=== PATIENT | female | born 1980 ===

== ENCOUNTER 2019-10-01 20:38 | Inpatient (IN) ==
[2019-10-01 21:14] LABS: Bilirubin,Urine Negative (Negative); Blood,Urine Negative (Negative); Clarity,Urine Cloudy (Clear); Color,Urine Yellow (Yellow); Glucose,Urine (UA) Normal (Normal); Ketones,Urine Negative (Negative); Leukocyte Esterase,Urine Moderate (Negative); Nitrite,Urine Negative (Negative); Protein,Urine Negative (Neg-Trace); Specific Gravity,Urine 1.021 (1.010-1.025); Urobilinogen,Urine Normal (Normal)
[2019-10-01 21:15] LABS: Bacteria,Urine Few per hpf (None-Few); Hyaline Casts,Urine Few per lpf (None-Few); Squamous Epithelial Cell,Urine Many per lpf (None-Few); WBC,Urine 15-30 per hpf (0-3)
[2019-10-01] MEDS ORDERED: Isovue-370 500 ML BOTTLE IVP ONE (21:19)
[2019-10-01] MEDS ORDERED: Morphine Sulfate 2 MG/ML SYRINGE IVP ONE (21:21)
[2019-10-01 21:27] LABS: RBC,Urine 0-3 per hpf (0-3)
[2019-10-01 21:31] LABS: Basophils % 0.6 %; Eosinophils # 0.1 K/mcL (0.0-0.6); Hematocrit 43.4 % (35.3-44.9); Hemoglobin 14.1 g/dL (11.5-15.4); Immature Granulocytes % 0.3 % (0-4); Lymphocytes # 1.2 K/mcL (0.6-4.6); Lymphocytes % 19.6 %; Mean Corpuscular HGB Conc 32.5 g/dL (31.6-35.5); Mean Corpuscular Hemoglobin 30.9 pg (28.0-33.3); Monocytes # 0.3 K/mcL (0.0-1.3); Monocytes % 5.1 %; Neutrophils # 4.6 K/mcL (1.6-8.9); Platelet Count 277 K/mcL (140-400); Red Blood Count 4.57 M/mcL (3.82-4.97); Red Cell Distribution Width 11.7 % (11.5-14.5); Segmented Neutrophils % 73.4 %; White Blood Count 6.3 K/mcL (4.3-11.1)
[2019-10-01 21:46] LABS: Alanine Aminotransferase 9 Units/L (7-52); Albumin 4.7 g/dL (3.5-5.7); Albumin/Globulin Ratio 1.3 (1.1-2.2); Alkaline Phosphatase 68 Units/L (34-104); Amylase 41 Units/L (29-103); Aspartate Amino Transferase 11 Units/L (13-39); BUN/Creatinine Ratio 13 (6-26); Bilirubin,Direct 0.1 mg/dL (0.0-0.2); Bilirubin,Indirect 0.3 mg/dL (0.0-1.0); Bilirubin,Total 0.4 mg/dL (0.3-1.0); Blood Urea Nitrogen 15 mg/dL (6-20); Calcium 9.9 mg/dL (8.6-10.3); Carbon Dioxide 23 mEq/L (23-29); Chloride 105 mEq/L (98-107); Globulin 3.5 g/dL (2.4-3.5); Glucose 103 mg/dL (70-105); Lipase 32 Units/L (11-82); Osmolality,Calculated 285 (280-300); Potassium 3.5 mEq/L (3.5-5.1); Sodium 137 mEq/L (136-145); Total Protein 8.2 g/dL (6.4-8.9); eGFR For African Americans > 60 (> 60); eGFR For Non-African Americans 50 (> 60)
[2019-10-01] MEDS ORDERED: cefTRIAXone 1,000 MG in Water for inj. (sterile) 10 ML IVP ONE (22:45)
[2019-10-01] MEDS ORDERED: Ketorolac 15 MG/ML VIAL IVP PRN (23:44)
[2019-10-01] MEDS ORDERED: Ondansetron 4 MG/2 ML VIAL IVP PRN (23:44)
[2019-10-01] MEDS ORDERED: Naloxone 0.4 MG/ML INJ IVP PRN (23:44)
[2019-10-02] MEDS: 0.9 % Sodium Chloride 1,000 ML IVC SCH (00:49)
[2019-10-02 05:01] LABS: BUN/Creatinine Ratio 13 (6-26); Blood Urea Nitrogen 14 mg/dL (6-20); Calcium 8.9 mg/dL (8.6-10.3); Carbon Dioxide 24 mEq/L (23-29); Chloride 108 mEq/L (98-107); Glucose 96 mg/dL (70-105); Osmolality,Calculated 288 (280-300); Potassium 3.6 mEq/L (3.5-5.1); Sodium 139 mEq/L (136-145); eGFR For African Americans > 60 (> 60); eGFR For Non-African Americans 57 (> 60)
[2019-10-02 05:15] LABS: Thyroid Stimulating Hormone 1.833 mcIU/mL (0.340-5.600)
[2019-10-02] MEDS: *HR* Heparin 5,000 UNIT/ML VIAL SQ SCH ×2 (05:22→16:15)
[2019-10-02] MEDS ORDERED: CLOBAZAM 10 MG PO SCH (10:00)
[2019-10-02] MEDS: Clobazam [Onfi] 10 MG PO SCH (20:44)
[2019-10-03] MEDS: *HR* Heparin 5,000 UNIT/ML VIAL SQ SCH ×2 (05:28→17:04)
[2019-10-03] MEDS: 0.9 % Sodium Chloride 1,000 ML IVC SCH (18:43)
[2019-10-03] MEDS ORDERED: Ondansetron ODT 4 MG TAB.RAPDIS SL ONE (20:20)
[2019-10-03] MEDS: Clobazam [Onfi] 10 MG PO SCH ×2 (21:07→21:29)
[2019-10-03] MEDS: Topiramate 25 MG TABLET PO SCH ×2 (21:08→22:10)
[2019-10-03] MEDS: risperiDONE 1 MG TABLET PO SCH ×2 (21:08→22:10)
[2019-10-03] MEDS: lamoTRIgine 100 MG TABLET PO SCH ×2 (21:08→22:10)
[2019-10-04 02:11] LABS: Hematocrit 39.6 % (35.3-44.9); Hemoglobin 13.2 g/dL (11.5-15.4); Mean Corpuscular HGB Conc 33.3 g/dL (31.6-35.5); Mean Platelet Volume 10.3 fL (9.4-12.4); Platelet Count 242 K/mcL (140-400); Red Blood Count 4.26 M/mcL (3.82-4.97); Red Cell Distribution Width 11.3 % (11.5-14.5); White Blood Count 6.7 K/mcL (4.3-11.1)
[2019-10-04 02:32] LABS: BUN/Creatinine Ratio 12 (6-26); Blood Urea Nitrogen 9 mg/dL (6-20); Calcium 9.5 mg/dL (8.6-10.3); Carbon Dioxide 22 mEq/L (23-29); Chloride 106 mEq/L (98-107); Glucose 107 mg/dL (70-105); Osmolality,Calculated 281 (280-300); Potassium 3.6 mEq/L (3.5-5.1); Sodium 136 mEq/L (136-145); eGFR For African Americans > 60 (> 60); eGFR For Non-African Americans > 60 (> 60)
[2019-10-04] MEDS: *HR* Heparin 5,000 UNIT/ML VIAL SQ SCH ×2 (05:33→17:16)
[2019-10-04] MEDS: risperiDONE 1 MG TABLET PO SCH ×2 (09:06→19:57)
[2019-10-04] MEDS: lamoTRIgine 100 MG TABLET PO SCH ×2 (09:06→19:56)
[2019-10-04] MEDS: Topiramate 25 MG TABLET PO SCH ×2 (09:07→19:56)
[2019-10-04] MEDS: Clobazam [Onfi] 10 MG PO SCH (19:56)
[2019-10-04] MEDS ORDERED: Ondansetron ODT 4 MG TAB.RAPDIS SL ONE (21:00)
[2019-10-05 02:05] LABS: Hematocrit 38.8 % (35.3-44.9); Hemoglobin 13.1 g/dL (11.5-15.4); Mean Corpuscular HGB Conc 33.8 g/dL (31.6-35.5); Mean Corpuscular Hemoglobin 31.6 pg (28.0-33.3); Mean Corpuscular Volume 93.7 fL (83.0-100.0); Mean Platelet Volume 10.2 fL (9.4-12.4); Platelet Count 243 K/mcL (140-400); Red Blood Count 4.14 M/mcL (3.82-4.97); Red Cell Distribution Width 11.5 % (11.5-14.5)
[2019-10-05 02:23] LABS: BUN/Creatinine Ratio 6 (6-26); Blood Urea Nitrogen 6 mg/dL (6-20); Calcium 9.5 mg/dL (8.6-10.3); Carbon Dioxide 22 mEq/L (23-29); Chloride 105 mEq/L (98-107); Glucose 99 mg/dL (70-105); Osmolality,Calculated 282 (280-300); Potassium 3.5 mEq/L (3.5-5.1); Sodium 137 mEq/L (136-145); eGFR For African Americans > 60 (> 60); eGFR For Non-African Americans > 60 (> 60)
[2019-10-05] MEDS: *HR* Heparin 5,000 UNIT/ML VIAL SQ SCH (04:55)
[2019-10-05 06:57] VITALS: BP 114/79
[2019-10-05] MEDS: lamoTRIgine 100 MG TABLET PO SCH (07:20)
[2019-10-05] MEDS: risperiDONE 1 MG TABLET PO SCH (07:21)
[2019-10-05] MEDS: Topiramate 25 MG TABLET PO SCH (07:21)
== END 2019-10-05 12:38 | disposition home or self-care (01) | DRG 390 ==
LOC: 3BNU 20:38 → EMEROOARM 20:38 → SUATTDRO 23:42 → 3BNU 10-02 00:19
PROVIDERS: ADMIT Internal Medicine; ATTEND Internal Medicine